=== PATIENT | male | born 1985 | race Hispanic/Latino ===

== ENCOUNTER 2021-11-24 10:42 | Emergency (ER) | payer OTHER ==
[2021-11-24] MEDS ORDERED: Ketorolac Tromethamine 30 MG/ML VIAL ONE (11:25)
== END 2021-11-24 12:36 | disposition home or self-care (01) ==
LOC: CSHERS 10:42
DX: S10.93XA Contusion of unspecified part of neck, initial encounter (principal); M79.18 Myalgia, other site; V47.5XXA Car driver injured in collision with fixed or stationary object in traffic accident, initial encounter
CPT/HCPCS: 70450; 72125; 72131; 96372; J1885